=== PATIENT | male | born 1960 | race American Indian/Alaskan Native ===

== ENCOUNTER 2017-07-06 11:14 | Day surgery (SDC) | payer OTHER ==
[2017-07-06] MEDS ORDERED: IOPIDINE ONE (11:18)
[2017-07-06] MEDS ORDERED: NEOFRIN ONE (11:18)
[2017-07-06] MEDS ORDERED: MYDRIACYL ONE (11:18)
[2017-07-06] MEDS ORDERED: MYDRIACYL OD ONE (11:52)
[2017-07-06] MEDS ORDERED: IOPIDINE OD ONE (11:52)
[2017-07-06] MEDS ORDERED: NEOFRIN OD ONE (11:52)
[2017-07-06 13:58] VITALS: BP 146/84
== END 2017-07-06 12:56 | disposition home or self-care (01) ==
LOC: OR 11:14
PROVIDERS: ATTEND Specialist
DX: E11.36 Type 2 diabetes mellitus with diabetic cataract (principal); Z98.890 Other specified postprocedural states
CPT/HCPCS: 82962